=== PATIENT | female | born 1990 ===

== ENCOUNTER → 2024-05-04 | Outpatient (REF) ==
[2024-05-05 13:16] LABS: HERPES ZOSTER, VARICELLA IgG 1.96 S/CO (>=1.00)
[2024-05-06 16:32] LABS: QuantiFERON-TB Gold Plus POSITIVE (NEGATIVE)
== END ==
LOC: M LAB 09:35
PROVIDERS: ATTEND Family Medicine
DX: Z01.89 Encounter for other specified special examinations (principal)

== ENCOUNTER → 2024-05-10 | Outpatient (REF) | LOC: M RAD 08:54 | PROVIDERS: ATTEND Family Medicine | DX: Z02.89 Encounter for other administrative examinations (principal) ==